=== PATIENT | female | born 1975 | race Hispanic/Latino ===

== ENCOUNTER 2019-06-10 17:43 | Emergency (ER) | payer OTHER, SELFPAY ==
--- NOTE | 2019-06-10 18:40 | CT ---
EXAM: CT scan cervical spineWithout contrast: HISTORY: Injury from trauma COMPARISON: None FINDINGS: No evidence for acute fracture or facet dislocation. No significant malalignment. No prevertebral soft tissue swelling. 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 IMPRESSION: No evidence for acute fracture or facet dislocation or other significant acute process.
== END 2019-06-10 19:25 | disposition home or self-care (01) ==
LOC: ERS 17:43
DX: S16.1XXA Strain of muscle, fascia and tendon at neck level, initial encounter (principal); F32.9 Major depressive disorder, single episode, unspecified; V43.52XA Car driver injured in collision with other type car in traffic accident, initial encounter
CPT/HCPCS: 72125

== ENCOUNTER 2020-02-06 06:54 | Outpatient (CLI) | payer BC, OTHER | END 2020-02-06 06:55 | disposition home or self-care (01) | LOC: LABBT 06:54 | PROVIDERS: ATTEND Specialist | DX: Z01.812 Encounter for preprocedural laboratory examination (principal); Z11.59 Encounter for screening for other viral diseases; C50.211 Malignant neoplasm of upper-inner quadrant of right female breast; Z17.1 Estrogen receptor negative status [ER-] | CPT/HCPCS: 87635; U0003 ==

== ENCOUNTER 2020-02-10 05:47 | Day surgery (SDC) | payer MEDICAID, OTHER, SELFPAY ==
[2020-02-06 11:30] VITALS: BMI 27.6
[2020-02-10] MEDS ORDERED: Lidocaine 2% w/Epinephrine 1:200K 20 ML VIAL ONE (06:32)
[2020-02-10] MEDS ORDERED: Bupivacaine PF 0.5% 30 ML VIAL ONE (06:32)
--- NOTE | 2020-02-10 06:33 | HP ---
HISTORY OF PRESENT ILLNESS: Barbara Cruz is a 44-year-old female, who had noticed a year ago a mass in her upper medial right breast. This was small in size. She apparently had diagnostic imaging and was told this was a cyst. It, however, continued to grow and she reported to her primary care physician who referred her for imaging in December 2019, undergoing ultrasound and mammogram on 01/09/2020, revealed a 5.7 cm mass in upper medial right breast. Ultrasound reveals it to be solid in appearance and also had enlarged lymph node size of which was not described in the right axilla. The patient subsequently had ultrasound-guided biopsies of the right breast upper medial mass and right axillary node again size not described on 01/13/2020. Pathology of the lymph node is benign lymphoid tissue. 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 The patient is 5, para 3, grown children. First 19 years of age. Family history negative for breast cancer. 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 Her youngest is a senior. The patient has a palpable mass, now 7.5 to 8 cm in diameter. There is no skin fixation. There is no skin ulceration. There are no skin changes. I cannot palpate an axillary node. I have discussed this case with Dr. Vences and arranged appointment to see him for medical oncology next week. In the interim, we will obtain a CT scan, chest, abdomen, pelvis, p.o. and IV contrast, bone scan, CBC, comprehensive metabolic profile, and an echocardiogram anticipating and planning for neoadjuvant therapy prior to surgical intervention. She will also need an echocardiogram for baseline cardiac function. The patient's MediPort will be placed next week. IV sedation, local anesthesia. ALLERGIES: NONE. TOBACCO: None. ALCOHOL: She does drink alcohol very rarely. MEDICATIONS: None routinely. PAST MEDICAL HISTORY: Lupus arthritis. Current diagnosis of breast cancer. PAST SURGICAL HISTORY: Appendectomy in 2012, cholecystectomy in 2000. FAMILY HISTORY: Negative. Mother did have hypertension and cholesterol. REVIEW OF SYSTEMS: Ten-point noncontributory. PHYSICAL EXAMINATION: VITAL SIGNS: Weight 144 pounds, height 61 inches, 27 BMI, blood pressure 107/68, heart rate 72, temperature 98.4 degrees. HEAD, EARS, EYES, NOSE, AND THROAT: Unremarkable. GENERAL: She is well developed, well nourished, in no acute distress. Oriented x3. Neurologically intact without deficits. No lymphadenopathy in neck, axilla, or groins bilaterally. CARDIAC: Regular rate and rhythm. No murmur or gallop. CHEST: Clear to auscultation. ABDOMEN: Soft and nontender. EXTREMITIES: Without edema. BREASTS: Left breast is normal. Right breast upper medial reveals a 7.5 to 8 cm mobile mass without skin fixation and without skin abnormalities. Nonpalpable right axilla mass lymph nodes. She is slightly tender in her right axilla from recent biopsy. ASSESSMENT AND PLAN: Right breast cancer, triple negative. We would recommend neoadjuvant therapy with plans as outlined above. She has appointment to see Dr. Vences next week and will arrange MediPort placement next week. I have spent over an hour with this patient discussing recommendations, examining her, and discussing her care with Dr. Vences. Job ID: [id number]
[2020-02-10 07:11] LABS: BHCG - Serum Negative (NEGATIVE); Pregs Control Background? CLEAR/WHITE (CLR/WHITE); Pregs Control Bar Appear? YES (CONTROL BAR)
[2020-02-10] MEDS ORDERED: Fentanyl 100 MCG/2 ML VIAL ONE ×2 (07:24→08:01)
[2020-02-10] MEDS ORDERED: Midazolam HCl 2 mg/2 ml Vial ONE ×2 (07:24→08:01)
[2020-02-10] MEDS ORDERED: PROPOFOL 200 MG/20 ML VIAL ONE (10:16)
--- NOTE | 2020-02-10 10:56 | RAD ---
SINGLE VIEW OF THE CHEST: COMPARISON: None. HISTORY: HemoSplit placement. FINDINGS: A single view of the chest shows a normal-size cardiomediastinal silhouette. A MediPort is seen with its tip in the superior vena cava. Radiopaque structures project over the upper abdomen which may r epresent something external to the patient or laparoscopic sponges in the patient. There are approxi mately 4 of these structures seen. There is no evidence of consolidation, mass, or pleural effusion. Cholecystectomy clips are seen. IMPRESSION: Multiple radiopaque foreign bodies projecting over the abdomen may represent laparoscopic sponges. CODE T POS: EAA
--- NOTE | 2020-02-10 13:42 | OP ---
DATE OF PROCEDURE: 02/10/2020 PREOPERATIVE DIAGNOSIS: Advanced right breast cancer, upper medial, in need of antineoplastic chemotherapy administration access preoperatively. POSTOPERATIVE DIAGNOSES: Advanced right breast cancer, upper medial, in need of antineoplastic chemotherapy administration access preoperatively. PROCEDURE PERFORMED: Left subclavian vein low-profile MediPort, PowerPort. ANESTHESIA: Intravenous sedation with local 0.5% Marcaine 30 mL mixed with 1% Xylocaine with epinephrine 20 mL. Note, fluoroscopy malfunctioned, I used digital x-ray for positioning. DESCRIPTION OF PROCEDURE: The patient was taken to the operating room, where under intravenous sedation, neck and chest prepared with ChloraPrep and draped in routine fashion. Local anesthetic mixture was infiltrated into the skin and subcutaneous tissue about the operative site. Trocar catheter cannulated the subclavian vein in left infraclavicular approach and J-wire threaded, trocar catheter removed. Skin site enlarged sharply and a subcutaneous pocket created, noting good hemostasis. Fluoroscopy malfunctioned. Dilator and Peel-Away sheath placed over the J-wire into the superior vena cava, and dilator and J-wire removed. Catheter placed with Peel-Away sheath. Peel-Away sheath removed. Once digital x-rays obtained, tip placed in optimal position in superior vena cava, catheter tailored to length, connected to the MediPort, placed in subcutaneous pocket, and subcutaneous tissue was approximated with 3-0 Monocryl, skin with subdermal 4-0 Monocryl, and [place] glue applied. MediPort accessed with a Waterman needle, obtaining good return of venous blood, and flushed with heparinized saline solution. Final chest x-ray revealed good line and MediPort placement. Job ID: [id number]
== END 2020-02-10 10:40 | disposition home or self-care (01) ==
LOC: SDC 05:47
PROVIDERS: ATTEND Specialist
PROC: 02HV33Z Insertion of Infusion Device into Superior Vena Cava, Percutaneous Approach (ICD-10-PCS; principal; 2020-02-10)
DX: C50.211 Malignant neoplasm of upper-inner quadrant of right female breast (principal); M19.90 Unspecified osteoarthritis, unspecified site; Z17.1 Estrogen receptor negative status [ER-]
CPT/HCPCS: 36415; 71045; 84703; C1788; J0690; J1642; J2250; J2704; J3010; S0020

== ENCOUNTER 2020-02-14 08:09 | Outpatient (CLI) | payer MEDICAID, OTHER, SELFPAY ==
[2020-02-14] MEDS ORDERED: Iopamidol 370 76% 50 ML VIAL FS ONE (09:31)
[2020-02-14] MEDS ORDERED: Iopamidol-370 76% 500 ML 1 ML ONE (09:31)
--- NOTE | 2020-02-14 12:36 | CT ---
CT OF THE CHEST, ABDOMEN AND PELVIS WITH IV CONTRAST INDICATION: History of breast cancer; evaluate for metastatic disease COMPARISON: None FINDINGS: CHEST: Lungs: The lungs are clear. Pleural space: No effusion. Mediastinum: There is a left subclavian chest wall port. No pathologically enlarged lymph nodes are s een within the mediastinum. Axilla: There are enlarged lymph nodes within the right axilla. The largest is seen on image 17 of s eries 2 measuring 1.2 cm. There is an additional 9 mm lymph node on image 16 of series 2. A mildly prominent lymph node is seen within the right axilla on image 20 of series 2 measuring 8 mm. No supra clavicular lymphadenopathy is evident. There is a 5.6 x 4.7 cm right breast mass. There is thickening of the overlying skin of the right breast suspicious for inflammatory right breast maligna ncy. ABDOMEN: Liver: There is focal intrahepatic biliary ductal dilatation involving the right hepatic lobe. There is post procedural change of a cholecystectomy. Gallbladder: Surgically absent Pancreas: Normal. Adrenal glands: Normal. Spleen: Normal. Kidneys and ureters: Normal. No hydronephrosis. Vasculature: Normal. Lymph nodes:No lymphadenopathy. Free fluid in abdomen:No free fluid is evident. PELVIS: Small and large bowel: No definite abnormality is evident. Appendix:Not definitely seen Bladder: Normal. Rectal and perirectal soft tissues:Normal. Reproductive structures: Normal. Free fluid in pelvis: No free fluid is evident. Lymphadenopathy pelvis: No lymphadenopathy is evident. Osseous structures: No acute osseous abnormality. No destructive osteolytic or osteoblastic lesion i s identified. There is scattered degenerative and osteoarthritic changes. Soft tissues:Normal. IMPRESSION: 1. Large right breast mass with associated right breast skin thickening is suspicious for inflammator y breast cancer. 2. Enlarged lymph nodes of the right axilla suspicious for malignant lymphadenopathy. 3. No evidence of metastatic disease in the lungs, abdomen and pelvis.
--- NOTE | 2020-02-14 13:24 | NM ---
WHOLE BODY BONE SCAN: HISTORY: Right breast cancer. Malignant neoplasm of the upper inner quadrant of the right female rené st RADIOPHARMACEUTICAL: 28 mCi technetium 99m-MDP injected intravenously COMPARISON: None CORRELATION: CT chest, abdomen and pelvis of same date FINDINGS: There scattered degenerative activity in the appendicular skeleton. There is some soft tissue activit y in the right breast mass seen on the CT scan. No other abnormal areas of tracer localization are seen in the skeleton to suggest metastatic disease . Tracer excretion through the kidneys is within normal limits. IMPRESSION: No scintigraphic evidence of osseous metastatic disease.
== END 2020-02-14 08:10 | disposition home or self-care (01) ==
LOC: CT 08:09
PROVIDERS: ATTEND Internal Medicine Hematology & Oncology
DX: C50.211 Malignant neoplasm of upper-inner quadrant of right female breast (principal); N63.10 Unspecified lump in the right breast, unspecified quadrant; R59.0 Localized enlarged lymph nodes; N64.89 Other specified disorders of breast
CPT/HCPCS: 36415; 71260; 74177; 78306; 84702; A9503; Q9967

== ENCOUNTER 2020-02-16 12:42 | Outpatient (CLI) | payer MEDICAID, OTHER, SELFPAY | END 2020-02-16 12:43 | disposition home or self-care (01) | LOC: CT 12:42 | PROVIDERS: ATTEND Specialist | DX: C50.211 Malignant neoplasm of upper-inner quadrant of right female breast (principal); I08.2 Rheumatic disorders of both aortic and tricuspid valves | CPT/HCPCS: 93306 ==

== ENCOUNTER 2020-02-24 12:34 | Day surgery (SDC) | payer MEDICAID ==
[~2020-02-24 12:34] MED LIST: CARBOPLATIN IVPB SCH; Dexamethasone Sod Phosphate 10 MG, Ondansetron 2MG/ML MDV 10 MG in Sodium Chloride 0.9%... IVPB SCH; PACLITAXEL IVPB SCH; Pembrolizumab 200 MG in Sodium Chloride 0.9% 250 ML 250 ML IV SCH; SODIUM CHLORIDE 0.9% IVPB SCH; Sodium Chloride 0.9% 20 ML ONE
[2020-02-24 13:09] VITALS: BP 115/69; TEMP 98.4
== END 2020-02-24 16:29 | disposition home or self-care (01) ==
LOC: ONC/OP 12:34
PROVIDERS: ATTEND Internal Medicine Hematology & Oncology
DX: Z51.12 Encounter for antineoplastic immunotherapy (principal); C50.211 Malignant neoplasm of upper-inner quadrant of right female breast
CPT/HCPCS: 96375; 96413; 96417; J1100; J1642; J2405; J7050; J9045; J9267

== ENCOUNTER 2020-03-01 10:50 | Day surgery (SDC) | payer MEDICAID ==
[~2020-03-01 10:50] MED LIST changes: -Dexamethasone Sod Phosphate 10 MG, Ondansetron 2MG/ML MDV 10 MG in Sodium Chloride 0.9%... IVPB SCH; -Pembrolizumab 200 MG in Sodium Chloride 0.9% 250 ML 250 ML IV SCH; -Sodium Chloride 0.9% 20 ML ONE
[2020-03-01] MEDS: Dexamethasone Sod Phosphate 10 MG, Ondansetron 2MG/ML MDV 10 MG in Sodium Chloride 0.9%... IVPB SCH ×2 (10:55→11:08)
[2020-03-01] MEDS ORDERED: Sodium Chloride 0.9% 20 ML ONE (10:58)
[2020-03-01 11:17] VITALS: BP 112/70; TEMP 98.5
== END 2020-03-01 13:12 | disposition home or self-care (01) ==
LOC: ONC/OP 10:50
PROVIDERS: ATTEND Internal Medicine Hematology & Oncology
DX: Z51.11 Encounter for antineoplastic chemotherapy (principal); C50.211 Malignant neoplasm of upper-inner quadrant of right female breast
CPT/HCPCS: 96375; 96413; 96417; J1100; J1642; J2405; J7050; J9045; J9267

== ENCOUNTER 2020-03-30 08:46 | Day surgery (SDC) | payer MEDICAID ==
[~2020-03-30 08:46] MED LIST changes: +Dexamethasone Sod Phosphate 10 MG, Ondansetron 2MG/ML MDV 10 MG in Sodium Chloride 0.9%... IVPB SCH; +Pembrolizumab 200 MG in Sodium Chloride 0.9% 250 ML 250 ML IV SCH
[2020-03-30] MEDS ORDERED: Sodium Chloride 0.9% 20 ML ONE (09:10)
[2020-03-30 09:13] VITALS: BP 116/68; TEMP 97.8
== END 2020-03-30 12:56 | disposition home or self-care (01) ==
LOC: ONC/OP 08:46
PROVIDERS: ATTEND Internal Medicine Hematology & Oncology
DX: Z51.11 Encounter for antineoplastic chemotherapy (principal); C50.211 Malignant neoplasm of upper-inner quadrant of right female breast; Z17.1 Estrogen receptor negative status [ER-]
CPT/HCPCS: 96375; 96413; 96417; J1100; J1642; J2405; J7050; J9045; J9267

== ENCOUNTER 2020-04-20 09:22 | Day surgery (SDC) | payer OTHER ==
[~2020-04-20 09:22] MED LIST changes: +Sodium Chloride 0.9% 20 ML ONE
[2020-04-20 10:22] VITALS: BP 122/76; TEMP 98.4
[2020-04-20] MEDS ORDERED: Sodium Chloride 0.9% 20 ML ONE (12:44)
[2020-04-27] MEDS ORDERED: Dexamethasone Sod Phosphate 10 MG, Ondansetron 2MG/ML MDV 10 MG in Sodium Chloride 0.9%... IVPB SCH (01:30)
== END 2020-04-20 13:12 | disposition home or self-care (01) ==
LOC: ONC/OP 09:22
PROVIDERS: ATTEND Internal Medicine Hematology & Oncology
DX: Z51.12 Encounter for antineoplastic immunotherapy (principal); C50.211 Malignant neoplasm of upper-inner quadrant of right female breast
CPT/HCPCS: 96375; 96413; 96417; J1100; J1642; J2405; J7050; J9045; J9267; J9271

== ENCOUNTER 2020-04-27 09:08 | Day surgery (SDC) | payer OTHER ==
[~2020-04-27 09:08] MED LIST changes: -Pembrolizumab 200 MG in Sodium Chloride 0.9% 250 ML 250 ML IV SCH; -Sodium Chloride 0.9% 20 ML ONE
[2020-04-27] MEDS ORDERED: Sodium Chloride 0.9% 20 ML ONE ×2 (09:23→09:29)
[2020-04-27 09:49] VITALS: BP 107/72
== END 2020-04-27 12:24 | disposition home or self-care (01) ==
LOC: ONC/OP 09:08
PROVIDERS: ATTEND Internal Medicine Hematology & Oncology
DX: Z51.11 Encounter for antineoplastic chemotherapy (principal); C50.211 Malignant neoplasm of upper-inner quadrant of right female breast
CPT/HCPCS: 96375; 96413; 96417; J1100; J1642; J2405; J7050; J9045; J9267

== ENCOUNTER 2020-05-04 09:50 | Day surgery (SDC) | payer OTHER ==
[2020-05-04] MEDS ORDERED: Sodium Chloride 0.9% 20 ML ONE (09:51)
[2020-05-04 10:26] LABS: #Basophils 0.1 thou/uL (0.0-0.2); #Eosinphils 0.1 thou/uL (0.0-0.7); #Lymphocytes 1.3 thou/uL (1.20-3.40); #Monocytes 0.3 thou/uL (0.11-0.59); #Neutrophils 1.2 thou/uL (1.40-6.50); %Basophils 2.1 % (0.0-1.0); %Lymphocytes 45.6 % (21.0-51.0); %Monocytes 8.7 % (0.0-10.0); %Neutrophils 41.6 % (42.0-75.0); Hemoglobin 11.3 g/dL (12.0-16.0); Mean Corpuscular HGB CONC 34.3 g/dL (32.0-36.0); Mean Corpuscular Hemoglobin 32.2 pg (27.0-31.0); Mean Corpuscular Volume 93.9 fL (78.0-98.0); Mean Platelet Volume 9.2 fL (7.4-10.4); Platelet Count 269 thou/uL (130-400); RBC Distribution Width 13.1 % (11.5-14.5); Red Blood Cell (RBC) Count 3.52 mill/uL (4.20-5.40); White Blood Cell (WBC) Count 2.9 thou/uL (4.8-10.8)
[2020-05-04 10:56] VITALS: BP 118/79; TEMP 98.8
[2020-05-04 11:10] LABS: ALT (SGPT) 158 U/L (8-55); AST (SGOT) 73 U/L (5-34); Albumin 3.8 g/dL (3.5-5.0); Alkaline Phosphatase 219 U/L (40-110); Anion Gap 12 mmol/L (10-20); BUN (Urea Nitrogen) 10 mg/dL (7.0-18.7); Bilirubin, Total 0.3 mg/dL (0.2-1.2); Calc. Creatinine Clearance 0 mL/min (70-130); Calcium 8.8 mg/dL (7.8-10.44); Carbon Dioxide 24 mmol/L (22-29); Chloride 106 mmol/L (98-107); Estimated GFR-MDRD Greater than 90; Globulin 2.8 g/dL (2.4-3.5); Glucose 91 mg/dL (70-105); Potassium 3.9 mmol/L (3.5-5.1); Protein, Total 6.6 g/dL (6.0-8.3); Sodium 138 mmol/L (136-145); Uric Acid 2.4 mg/dL (2.6-6.0)
== END 2020-05-04 11:01 | disposition home or self-care (01) ==
LOC: ONC/OP 09:50
PROVIDERS: ATTEND Internal Medicine Hematology & Oncology
DX: Z51.11 Encounter for antineoplastic chemotherapy (principal); C50.211 Malignant neoplasm of upper-inner quadrant of right female breast
CPT/HCPCS: 36591; 80053; 83615; 84550; 85025; 99211; G0463; J1100; J1642; J2405; J7050; J9045; J9267

== ENCOUNTER 2020-05-18 10:00 | Day surgery (SDC) | payer OTHER | END 2020-05-18 14:56 | disposition home or self-care (01) | LOC: ONC/OP 10:00 | PROVIDERS: ATTEND Internal Medicine Hematology & Oncology | DX: Z51.11 Encounter for antineoplastic chemotherapy (principal); C50.211 Malignant neoplasm of upper-inner quadrant of right female breast | CPT/HCPCS: 36415; 80053; 82248; 83615; 84100; 84550; 96375; 96413; 96417; J1100; J2405; J7050; J9045; J9267 ==

== ENCOUNTER 2020-05-25 10:23 | Day surgery (SDC) | payer OTHER ==
[~2020-05-25 10:23] MED LIST changes: -CARBOPLATIN IVPB SCH; +CARBOplatin 200 MG in Sodium Chloride 0.9% 250 ML 250 ML IVPB SCH
[2020-05-25] MEDS ORDERED: Sodium Chloride 0.9% 20 ML ONE (10:28)
[2020-05-25 13:14] VITALS: BP 106/77; TEMP 98.6
== END 2020-05-25 13:19 | disposition home or self-care (01) ==
LOC: ONC/OP 10:23
PROVIDERS: ATTEND Internal Medicine Hematology & Oncology
DX: Z51.11 Encounter for antineoplastic chemotherapy (principal); C50.211 Malignant neoplasm of upper-inner quadrant of right female breast
CPT/HCPCS: 36415; 80053; 82248; 83615; 84100; 84550; 96375; 96413; 96417; J1100; J1642; J2405; J7050; J9045; J9267

== ENCOUNTER 2020-06-01 12:47 | Day surgery (SDC) | payer OTHER ==
[~2020-06-01 12:47] MED LIST changes: +CARBOPLATIN IVPB SCH; -CARBOplatin 200 MG in Sodium Chloride 0.9% 250 ML 250 ML IVPB SCH; +Pembrolizumab 200 MG in Sodium Chloride 0.9% 250 ML 250 ML IV SCH
[2020-06-01] MEDS ORDERED: Sodium Chloride 0.9% 20 ML ONE (12:57)
[2020-06-01 13:32] VITALS: BP 118/60
== END 2020-06-01 17:03 | disposition home or self-care (01) ==
LOC: ONC/OP 12:47
PROVIDERS: ATTEND Internal Medicine Hematology & Oncology
DX: Z51.12 Encounter for antineoplastic immunotherapy (principal); C50.211 Malignant neoplasm of upper-inner quadrant of right female breast; D70.1 Agranulocytosis secondary to cancer chemotherapy
CPT/HCPCS: 96375; 96413; 96417; J1100; J1642; J2405; J7050; J9045; J9267

== ENCOUNTER 2020-06-08 09:34 | Day surgery (SDC) | payer OTHER ==
[2020-06-08] MEDS ORDERED: Sodium Chloride 0.9% 20 ML ONE (09:39)
[2020-06-08 09:43] VITALS: BP 122/76; TEMP 97.9
[2020-06-08] MEDS ORDERED: Ondansetron 2MG/ML MDV 10 MG, Dexamethasone Sod Phosphate 10 MG in Sodium Chloride 0.9%... IVPB SCH (09:45)
[2020-06-08] MEDS ORDERED: SODIUM CHLORIDE 0.9% IVPB SCH ×2 (10:00)
[2020-06-08] MEDS ORDERED: PACLITAXEL IVPB SCH (10:00)
[2020-06-08] MEDS ORDERED: CARBOPLATIN IVPB SCH (10:00)
== END 2020-06-08 13:37 | disposition home or self-care (01) ==
LOC: ONC/OP 09:34
PROVIDERS: ATTEND Internal Medicine Hematology & Oncology
DX: Z51.11 Encounter for antineoplastic chemotherapy (principal); C50.211 Malignant neoplasm of upper-inner quadrant of right female breast; D70.1 Agranulocytosis secondary to cancer chemotherapy
CPT/HCPCS: 36415; 80053; 82248; 83615; 84100; 84550; 96375; 96413; 96417; J1100; J1642; J2405; J7050; J9045; J9267

== ENCOUNTER 2020-06-15 09:14 | Day surgery (SDC) | payer OTHER ==
[~2020-06-15 09:14] MED LIST changes: -Dexamethasone Sod Phosphate 10 MG, Ondansetron 2MG/ML MDV 10 MG in Sodium Chloride 0.9%... IVPB SCH; +Ondansetron 2MG/ML MDV 10 MG, Dexamethasone Sod Phosphate 10 MG in Sodium Chloride 0.9%... IVPB SCH; -Pembrolizumab 200 MG in Sodium Chloride 0.9% 250 ML 250 ML IV SCH; +Sodium Chloride 0.9% 20 ML ONE
[2020-06-15 09:23] VITALS: BP 114/67
== END 2020-06-15 12:14 | disposition home or self-care (01) ==
LOC: ONC/OP 09:14
PROVIDERS: ATTEND Internal Medicine Hematology & Oncology
DX: Z51.11 Encounter for antineoplastic chemotherapy (principal); C50.211 Malignant neoplasm of upper-inner quadrant of right female breast; D70.1 Agranulocytosis secondary to cancer chemotherapy
CPT/HCPCS: 36415; 80053; 82248; 83615; 84100; 84550; 96375; 96413; 96417; J1100; J1642; J2405; J7050; J9045; J9267

== ENCOUNTER 2020-06-28 10:22 | Day surgery (SDC) | payer OTHER ==
[~2020-06-28 10:22] MED LIST changes: -CARBOPLATIN IVPB SCH; +CYCLOPHOSPHAMIDE IVPB SCH; +DOXORUBICIN IVPB SCH; +Dexamethasone Sod Phosphate 20 MG in Sodium Chloride 0.9% 50 ML IVPB SCH; -Ondansetron 2MG/ML MDV 10 MG, Dexamethasone Sod Phosphate 10 MG in Sodium Chloride 0.9%... IVPB SCH; -PACLITAXEL IVPB SCH; +Palonosetron HCl 0.25 MG in Sodium Chloride 0.9% 50 ML IVPB SCH; +Pembrolizumab 200 MG in Sodium Chloride 0.9% 250 ML 250 ML IV SCH; -Sodium Chloride 0.9% 20 ML ONE
[2020-06-28] MEDS ORDERED: Sodium Chloride 0.9% 20 ML ONE (10:33)
== END 2020-06-28 14:41 | disposition home or self-care (01) ==
LOC: ONC/OP 10:22
PROVIDERS: ATTEND Internal Medicine Hematology & Oncology
DX: Z51.12 Encounter for antineoplastic immunotherapy (principal); C50.211 Malignant neoplasm of upper-inner quadrant of right female breast; D70.1 Agranulocytosis secondary to cancer chemotherapy
CPT/HCPCS: 96367; 96375; 96413; 96417; J1100; J1453; J1642; J2469; J3490; J7050; J9000; J9070

== ENCOUNTER 2020-06-29 12:36 | Day surgery (SDC) | payer OTHER ==
[~2020-06-29 12:36] MED LIST changes: -CYCLOPHOSPHAMIDE IVPB SCH; -DOXORUBICIN IVPB SCH; -Dexamethasone Sod Phosphate 20 MG in Sodium Chloride 0.9% 50 ML IVPB SCH; +PEGFILGRASTIM-JMDB 6 MG/0.6 ML SYRINGE SQ SCH; -Palonosetron HCl 0.25 MG in Sodium Chloride 0.9% 50 ML IVPB SCH; -Pembrolizumab 200 MG in Sodium Chloride 0.9% 250 ML 250 ML IV SCH; -SODIUM CHLORIDE 0.9% IVPB SCH
== END 2020-06-29 12:54 | disposition home or self-care (01) ==
LOC: ONC/OP 12:36
PROVIDERS: ATTEND Internal Medicine Hematology & Oncology
DX: Z51.89 Encounter for other specified aftercare (principal); C50.211 Malignant neoplasm of upper-inner quadrant of right female breast; D70.1 Agranulocytosis secondary to cancer chemotherapy
CPT/HCPCS: 96372

== ENCOUNTER 2020-07-19 12:57 | Day surgery (SDC) | payer OTHER ==
[~2020-07-19 12:57] MED LIST changes: +CYCLOPHOSPHAMIDE IVPB SCH; +DOXORUBICIN IVPB SCH; +Dexamethasone Sod Phosphate 20 MG in Sodium Chloride 0.9% 50 ML IVPB SCH; -PEGFILGRASTIM-JMDB 6 MG/0.6 ML SYRINGE SQ SCH; +Palonosetron HCl 0.25 MG in Sodium Chloride 0.9% 50 ML IVPB SCH; +Pembrolizumab 200 MG in Sodium Chloride 0.9% 250 ML 250 ML IVPB SCH; +SODIUM CHLORIDE 0.9% IVPB SCH
[2020-07-19] MEDS ORDERED: Sodium Chloride 0.9% 20 ML ONE (13:06)
[2020-07-19] MEDS ORDERED: CYCLOPHOSPHAMIDE IV ONE (14:16)
[2020-07-19] MEDS ORDERED: SODIUM CHLORIDE 0.9% IV ONE (14:16)
[2020-07-19 14:54] VITALS: BP 108/70; TEMP 98.5
== END 2020-07-19 16:33 | disposition home or self-care (01) ==
LOC: ONC/OP 12:57
PROVIDERS: ATTEND Internal Medicine Hematology & Oncology
DX: Z51.12 Encounter for antineoplastic immunotherapy (principal); C50.211 Malignant neoplasm of upper-inner quadrant of right female breast; D70.1 Agranulocytosis secondary to cancer chemotherapy
CPT/HCPCS: 96367; 96375; 96413; 96417; J1100; J1453; J1642; J2469; J3490; J7050; J9000; J9070

== ENCOUNTER 2020-07-20 12:54 | Day surgery (SDC) | payer OTHER ==
[2020-07-20] MEDS ORDERED: PEGFILGRASTIM-JMDB 6 MG/0.6 ML SYRINGE ONE (12:57)
[2020-07-20 14:24] VITALS: BP 119/75; TEMP 97.5
== END 2020-07-20 14:25 | disposition home or self-care (01) ==
LOC: ONC/OP 12:54
PROVIDERS: ATTEND Internal Medicine Hematology & Oncology
DX: Z51.12 Encounter for antineoplastic immunotherapy (principal); C50.211 Malignant neoplasm of upper-inner quadrant of right female breast; D70.1 Agranulocytosis secondary to cancer chemotherapy
CPT/HCPCS: 96372; Q5108

== ENCOUNTER 2020-08-09 09:12 | Day surgery (SDC) | payer OTHER ==
[~2020-08-09 09:12] MED LIST changes: +PALONOSETRON HCL 0.05 MG/ML 5 ML VIAL IVP SCH
[2020-08-09] MEDS ORDERED: Sodium Chloride 0.9% 20 ML ONE (09:14)
[2020-08-09 09:41] VITALS: BP 110/72; TEMP 98
== END 2020-08-09 13:38 | disposition home or self-care (01) ==
LOC: ONC/OP 09:12
PROVIDERS: ATTEND Internal Medicine Hematology & Oncology
DX: Z51.11 Encounter for antineoplastic chemotherapy (principal); C50.211 Malignant neoplasm of upper-inner quadrant of right female breast; D70.1 Agranulocytosis secondary to cancer chemotherapy
CPT/HCPCS: 96367; 96375; 96413; 96417; J1100; J1453; J1642; J2469; J3490; J7050; J9000; J9070

== ENCOUNTER 2020-08-10 13:04 | Day surgery (SDC) | payer OTHER ==
[~2020-08-10 13:04] MED LIST changes: -CYCLOPHOSPHAMIDE IVPB SCH; -DOXORUBICIN IVPB SCH; -Dexamethasone Sod Phosphate 20 MG in Sodium Chloride 0.9% 50 ML IVPB SCH; -PALONOSETRON HCL 0.05 MG/ML 5 ML VIAL IVP SCH; +PEGFILGRASTIM-JMDB 6 MG/0.6 ML SYRINGE SQ SCH; -Palonosetron HCl 0.25 MG in Sodium Chloride 0.9% 50 ML IVPB SCH; -Pembrolizumab 200 MG in Sodium Chloride 0.9% 250 ML 250 ML IVPB SCH; -SODIUM CHLORIDE 0.9% IVPB SCH
[2020-08-10 14:12] VITALS: BP 130/83; TEMP 99.1
== END 2020-08-10 14:12 | disposition home or self-care (01) ==
LOC: ONC/OP 13:04
PROVIDERS: ATTEND Internal Medicine Hematology & Oncology
DX: Z51.89 Encounter for other specified aftercare (principal); C50.211 Malignant neoplasm of upper-inner quadrant of right female breast; D70.1 Agranulocytosis secondary to cancer chemotherapy
CPT/HCPCS: 96372; Q5108

== ENCOUNTER 2020-08-30 08:54 | Day surgery (SDC) | payer OTHER ==
[~2020-08-30 08:54] MED LIST changes: +CYCLOPHOSPHAMIDE IVPB SCH; +DOXORUBICIN IVPB SCH; +Dexamethasone Sod Phosphate 20 MG in Sodium Chloride 0.9% 50 ML IVPB SCH; +PALONOSETRON HCL 0.05 MG/ML 5 ML VIAL IVP SCH; -PEGFILGRASTIM-JMDB 6 MG/0.6 ML SYRINGE SQ SCH; +Pembrolizumab 200 MG in Sodium Chloride 0.9% 250 ML 250 ML IV SCH; +SODIUM CHLORIDE 0.9% IVPB SCH
[2020-08-30] MEDS ORDERED: Sodium Chloride 0.9% 20 ML ONE (09:22)
[2020-08-30 10:17] VITALS: BP 118/73; TEMP 99
== END 2020-08-30 15:18 | disposition home or self-care (01) ==
LOC: ONC/OP 08:54
PROVIDERS: ATTEND Internal Medicine Hematology & Oncology
DX: Z51.11 Encounter for antineoplastic chemotherapy (principal); C50.211 Malignant neoplasm of upper-inner quadrant of right female breast; D70.1 Agranulocytosis secondary to cancer chemotherapy
CPT/HCPCS: 96367; 96375; 96413; 96417; J1100; J1453; J1642; J2469; J3490; J7050; J9000; J9070

== ENCOUNTER 2020-10-03 07:25 | Day surgery (SDC) | payer OTHER ==
[2020-09-28 11:45] VITALS: BMI 26.8
[2020-10-03] MEDS ORDERED: Acetaminophen 500 MG TAB ONE (09:03)
[2020-10-03] MEDS ORDERED: Ketorolac Tromethamine 30 MG/ML VIAL ONE (09:03)
--- NOTE | 2020-10-03 09:13 | NM ---
Lymphoscintigraphy right breast HISTORY: Right breast cancer. FINDINGS: A total volume of 1 cc containing 399 uCi technetium 99m filtered sulfur colloid was inject ed into the skin at the 12, 3, 6, and 9:00 periareolar positions of the right breast. Imaging was performed, showing immediate uptake of radiotracer at 2 foci axillary tail right breast. Skin overlying the leonid uptake was marked, and patient was sent to day surgery. IMPRESSION : Technically successful lymphoscintigraphy right breast, revealing axillary tail sentinel nodes.
[2020-10-03] MEDS ORDERED: PROPOFOL 200 MG/20 ML VIAL ONE (09:21)
[2020-10-03] MEDS ORDERED: Dexamethasone 20 MG/5 ML VIAL ONE (09:21)
[2020-10-03] MEDS ORDERED: Ondansetron PF 4 MG/2 ML Vial ONE (09:21)
[2020-10-03] MEDS ORDERED: ePHEDrine 50 MG/ML VIAL ONE (09:21)
[2020-10-03] MEDS ORDERED: Lidocaine 1% PF 5 ML VIAL ONE (09:21)
[2020-10-03] MEDS ORDERED: Scopolamine 1.5 mg/72 hour Patch ONE (09:48)
[2020-10-03] MEDS ORDERED: HYDROmorphone 0.5 MG/0.5 ML SYRINGE ONE (10:50)
[2020-10-03] MEDS ORDERED: Dexmedetomidine 200 MCG/2 ML VIAL ONE (10:50)
[2020-10-03] MEDS ORDERED: Fentanyl 100 MCG/2 ML VIAL ONE (10:50)
[2020-10-03] MEDS ORDERED: Bupivacaine 0.25% HCL 30 ML VIAL ONE (10:51)
[2020-10-03] MEDS ORDERED: Lidocaine 1% (PF) 30 ML VIAL ONE (10:51)
[2020-10-03] MEDS ORDERED: Isosulfan Blue 50 MG/5 ML VIAL ONE (10:54)
[2020-10-03] MEDS ORDERED: HYDROcodone/Acetaminophen 5/325 mg Tablet ONE (13:12)
--- NOTE | 2020-10-03 15:02 | OP ---
DATE OF PROCEDURE: 10/03/2020 PREOPERATIVE DIAGNOSIS: Right breast cancer, upper inner quadrant. POSTOPERATIVE DIAGNOSIS: Right breast cancer, upper inner quadrant. PROCEDURES PERFORMED: 1. Lymphoscintigraphy. 2. Injection of Lymphazurin blue in right periareolar. 3. Viper node biopsy, counts of 420, post biopsy counts harvested bed 28. 4. Partial mastectomy of upper inner right breast. ANESTHESIA: General, local with 0.25% Marcaine 60 mL, mixed with 1% Xylocaine with epinephrine 20 mL, total volume used. DESCRIPTION OF PROCEDURE: The patient was taken to the operating room where after lymphoscintigraphy and under general anesthesia, Lymphazurin blue injected in the lateral areolar border subdermally, less than 2 mL used. Right breast was prepared with ChloraPrep and draped in routine fashion. Right breast massaged. Axillary incision made in the right, carried down to skin, subcutaneous tissue, and deep fascia, identifying the sentinel node, color blue with increased counts as noted and excised, submitted to Pathology for permanent evaluation. Good hemostasis obtained with cautery. Subcutaneous tissue was approximated with 3-0 Monocryl, skin with subdermal 4-0 Monocryl, and [place] glue applied after local anesthetic was infiltrated in the skin and subcutaneous tissue for postoperative pain control. Attention was then turned to the right breast cancer. Elliptical incision overlying the breast cancer upper medial of right breast performed, excising ellipse of skin to leave attached to the tumor. The skin and subcutaneous tissues dissected free from the breast cancer as well as underlying breast tissue for wide margins and partial mastectomy/tylectomy. Specimen excised and margins marked for pathology identification. Hemostasis gained with cautery. Subcutaneous tissue was approximated with 3-0 Monocryl, skin with 4-0 Monocryl, and local anesthetic was infiltrated in the skin and subcutaneous tissue about the wound in the biopsy cavity for postoperative pain control. [place] glue applied. Job ID: [id number]
== END 2020-10-03 15:10 | disposition home or self-care (01) ==
LOC: SDC 07:25
PROVIDERS: ATTEND Specialist
PROC: 0HBT0ZZ Excision of Right Breast, Open Approach (ICD-10-PCS; principal; 2020-10-03)
PROC: 07B50ZX Excision of Right Axillary Lymphatic, Open Approach, Diagnostic (ICD-10-PCS; principal; 2020-10-03)
DX: C50.211 Malignant neoplasm of upper-inner quadrant of right female breast (principal); C50.611 Malignant neoplasm of axillary tail of right female breast; M19.90 Unspecified osteoarthritis, unspecified site; Z17.1 Estrogen receptor negative status [ER-]; Z88.1 Allergy status to other antibiotic agents
CPT/HCPCS: 78195; 88307; 88342; A9541; J0690; J1100; J1170; J1885; J2001; J2405; J2704; J3010; J3490; Q9968; S0020

== ENCOUNTER 2021-07-08 14:03 | Outpatient (CLI) | payer MEDICAID | END 2021-07-08 14:04 | disposition home or self-care (01) | LOC: BICMAMMO 14:03 | PROVIDERS: ATTEND Internal Medicine Hematology & Oncology | DX: C50.211 Malignant neoplasm of upper-inner quadrant of right female breast (principal) | CPT/HCPCS: 77066; G0279 ==

== ENCOUNTER 2021-08-27 08:59 | Outpatient (CLI) | payer OTHER ==
[2021-08-27 09:53] LABS: BHCG - Serum Negative (NEGATIVE); Pregs Control Background? CLEAR/WHITE (CLR/WHITE); Pregs Control Bar Appear? YES (CONTROL BAR)
[2021-08-27] MEDS ORDERED: Iopamidol 370 76% 100 ML VIAL ONE (09:54)
== END 2021-08-27 09:00 | disposition home or self-care (01) ==
LOC: MERGE 08:59 → CT 08:59
PROVIDERS: ATTEND Internal Medicine Hematology & Oncology
DX: Z32.00 Encounter for pregnancy test, result unknown (principal); C50.211 Malignant neoplasm of upper-inner quadrant of right female breast; R91.8 Other nonspecific abnormal finding of lung field; N64.89 Other specified disorders of breast; D70.1 Agranulocytosis secondary to cancer chemotherapy; T45.1X5A Adverse effect of antineoplastic and immunosuppressive drugs, initial encounter; Z90.2 Acquired absence of lung [part of]; Z90.49 Acquired absence of other specified parts of digestive tract; Z92.3 Personal history of irradiation
CPT/HCPCS: 36415; 71260; 74177; 78306; 84703; A9503; Q9967

== ENCOUNTER 2021-09-06 17:30 | Inpatient (IN) | payer OTHER ==
[2021-09-17] MEDS ORDERED: ceFAZolin 2 GM/DEX 5% 100 ML BAG ONE ×2 (06:04→07:00)
[2021-09-17] MEDS ORDERED: Thrombin 5000 UNITS/5 ML VIAL ONE (06:12)
[2021-09-17] MEDS ORDERED: Bacitracin Zinc Ointment 30 gm TUBE ONE (06:12)
[2021-09-17] MEDS ORDERED: Neomycin-Polymyxin 1 ML AMP ONE ×2 (06:12→12:52)
[2021-09-17] MEDS ORDERED: Lidocaine 0.5%/Epinephrine 1:200,000 50 ml Vial ONE (06:12)
[2021-09-17] MEDS ORDERED: Midazolam HCl 2 mg/2 ml Vial ONE (06:36)
[2021-09-17] MEDS ORDERED: Acetaminophen 325 MG TAB PO PRN (06:36)
[2021-09-17] MEDS ORDERED: Promethazine HCl 25 MG/ML VIAL IM PRN (06:36)
[2021-09-17] MEDS ORDERED: Ondansetron PF 4 MG/2 ML Vial IVP PRN (06:36)
[2021-09-17] MEDS ORDERED: HYDROcodone/Acetaminophen 7.5/325 mg Tablet PO PRN (06:36)
[2021-09-17] MEDS ORDERED: Phenylephrine 10 MG/ML VIAL ONE (07:01)
[2021-09-17] MEDS ORDERED: Fentanyl 100 MCG/2 ML VIAL ONE ×3 (07:01→12:46)
[2021-09-17] MEDS ORDERED: Lidocaine 1% PF 5 ML VIAL ONE (07:30)
[2021-09-17] MEDS ORDERED: PROPOFOL 200 MG/20 ML VIAL ONE (07:30)
[2021-09-17] MEDS ORDERED: Ondansetron PF 4 MG/2 ML Vial ONE (07:30)
[2021-09-17] MEDS ORDERED: Ketorolac Tromethamine 30 MG/ML VIAL ONE (07:30)
[2021-09-17] MEDS ORDERED: Dexamethasone 20 MG/5 ML VIAL ONE (07:30)
[2021-09-17] MEDS ORDERED: Rocuronium Bromide 10 MG/ML (10ML VIAL) ONE (07:30)
[2021-09-17] MEDS ORDERED: Nitroglycerin 50 MG/250 ML BOT 0 ML ONE (08:18)
[2021-09-17] MEDS ORDERED: hydrALAZINE 20 MG/ML VIAL ONE (08:18)
[2021-09-17] MEDS ORDERED: HYDROmorphone 2 MG/ML VIAL ONE (13:03)
[2021-09-17] MEDS ORDERED: Albumin 5% 250 ML ONE (13:26)
[2021-09-17] MEDS ORDERED: Ondansetron ODT 4 MG TAB SL SCH (14:00)
[2021-09-17] MEDS ORDERED: Scopolamine 1.5 mg/72 hour Patch TD SCH (14:00)
[2021-09-17] MEDS ORDERED: Ondansetron ODT 8 MG TAB SL SCH (14:00)
[2021-09-17] MEDS: Labetalol HCl 100 MG/20 ML VIAL SLOW IVP PRN ×3 (15:01→21:12)
[2021-09-17] MEDS: ceFAZolin 2 GM/Dextrose 50 ML 2 GM in Premix Bag 1 BAG IVPB SCH ×2 (15:06→16:19)
[2021-09-17] MEDS: Morphine 4 MG/ML VIAL SLOW IVP PRN ×2 (15:27→20:09)
[2021-09-17] MEDS: Sodium Chloride 0.9% 1,000 ML IV SCH (15:48)
[2021-09-17 16:32] VITALS: BMI 27.6
[2021-09-17] MEDS: Dexamethasone 4 MG TAB PO SCH ×2 (17:23→20:10)
[2021-09-17] MEDS: Ondansetron ODT 4 MG TAB SL SCH ×2 (18:42→20:10)
[2021-09-17] MEDS: HYDROcodone/Acetaminophen 10/325 mg Tablet PO PRN ×2 (18:45→23:18)
[2021-09-18] MEDS: Sodium Chloride 0.9% 1,000 ML IV SCH ×3 (00:16→16:26)
[2021-09-18] MEDS: Dexamethasone 4 MG TAB PO SCH ×4 (01:05→20:37)
[2021-09-18] MEDS: Ondansetron ODT 4 MG TAB SL SCH ×6 (02:13→20:37)
[2021-09-18 03:30] LABS: #Lymphocytes 1.1 thou/uL (1.20-3.40); #Monocytes 0.8 thou/uL (0.11-0.59); #Neutrophils 17.3 thou/uL (1.40-6.50); %Basophils 0.1 % (0.0-1.0); %Eosinophils 0.1 % (0.0-10.0); %Lymphocytes 5.5 % (21.0-51.0); %Monocytes 4.3 % (0.0-10.0); Hemoglobin 11.4 g/dL (12.0-16.0); Mean Corpuscular HGB CONC 33.9 g/dL (32.0-36.0); Mean Corpuscular Hemoglobin 33.3 pg (27.0-31.0); Mean Platelet Volume 7.8 fL (7.4-10.4); Platelet Count 176 thou/uL (130-400); RBC Distribution Width 11.6 % (11.5-14.5); Red Blood Cell (RBC) Count 3.41 mill/uL (4.20-5.40); White Blood Cell (WBC) Count 19.2 thou/uL (4.8-10.8)
[2021-09-18 03:53] LABS: Anion Gap 14 mmol/L (10-20); BUN (Urea Nitrogen) 16 mg/dL (7.0-18.7); Calc. Creatinine Clearance 145 mL/min (70-130); Calcium 8.4 mg/dL (7.8-10.44); Carbon Dioxide 23 mmol/L (22-29); Chloride 102 mmol/L (98-107); Glucose 141 mg/dL (70-105); Magnesium 2.1 mg/dL (1.6-2.6); Sodium 135 mmol/L (136-145)
[2021-09-18] MEDS: HYDROcodone/Acetaminophen 10/325 mg Tablet PO PRN ×4 (04:48→22:46)
[2021-09-18] MEDS: Labetalol HCl 100 MG/20 ML VIAL SLOW IVP PRN (05:01)
[2021-09-18] MEDS: Morphine 4 MG/ML VIAL SLOW IVP PRN ×3 (07:12→20:40)
[2021-09-18] MEDS ORDERED: Prevnar 13-Val Conj/PF 0.5 ML SYRINGE IM ONE (16:45)
[2021-09-18] MEDS ORDERED: FLU VACC QS2021-22(6MOS UP)/PF 60 MCG/0.5 ML SYRINGE IM ONE (16:45)
[2021-09-19] MEDS: Ondansetron ODT 4 MG TAB SL SCH ×4 (01:07→13:00)
[2021-09-19] MEDS: HYDROcodone/Acetaminophen 10/325 mg Tablet PO PRN ×2 (03:38→09:04)
[2021-09-19] MEDS: Sodium Chloride 0.9% 1,000 ML IV SCH ×2 (04:44→12:20)
[2021-09-19] MEDS: Dexamethasone 4 MG TAB PO SCH (09:02)
[2021-09-19] MEDS: Morphine 4 MG/ML VIAL SLOW IVP PRN (11:06)
[2021-09-19 12:53] VITALS: BP 117/83; TEMP 98.7
== END 2021-09-19 14:23 | disposition home or self-care (01) | DRG 27 ==
LOC: SURG A 09-17 05:42 → CCU 09-17 14:17 → SURG B 09-18 16:22 → CCU 09-18 16:45 → SURG B 09-18 17:10
PROVIDERS: ADMIT Neurological Surgery; ATTEND Neurological Surgery
PROC: 00BC0ZZ Excision of Cerebellum, Open Approach (ICD-10-PCS; principal; 2021-09-17)
PROC: 00U20JZ Supplement Dura Mater with Synthetic Substitute, Open Approach (ICD-10-PCS; 2021-09-17)
PROC: 0NU Head and Facial Bones, Supplement (ICD-10-PCS; 2021-09-17)
DX: C79.31 Secondary malignant neoplasm of brain (principal); M19.90 Unspecified osteoarthritis, unspecified site; M32.9 Systemic lupus erythematosus, unspecified; C50.911 Malignant neoplasm of unspecified site of right female breast; R91.8 Other nonspecific abnormal finding of lung field; Z90.49 Acquired absence of other specified parts of digestive tract; Z90.11 Acquired absence of right breast and nipple; Z82.49 Family history of ischemic heart disease and other diseases of the circulatory system; Z83.49 Family history of other endocrine, nutritional and metabolic diseases; Z79.52 Long term (current) use of systemic steroids; Z88.1 Allergy status to other antibiotic agents; Z86.16 Personal history of COVID-19
CPT/HCPCS: 36415; 80048; 83735; 85025; 88307; 88331; 88334; 88341; 88342; C1713; C1776; C1788; C1889; J0360; J1100; J1170; J1642; J1885; J2001; J2250; J2270; J2370; J2405; J2704; J3010; J3370; J7050; J8540; P9045; Q0162

== ENCOUNTER 2021-09-12 08:47 | Outpatient (CLI) | payer OTHER ==
[2021-09-12 10:43] LABS: Hemoglobin 15.1 g/dL (12.0-15.5); Mean Corpuscular HGB CONC 34.7 g/dL (32.0-36.0); Mean Corpuscular Hemoglobin 32.5 pg (27.0-33.0); Mean Corpuscular Volume 93.5 fl (81.6-98.3); Mean Platelet Volume 10.9 fl (7.4-10.4); Platelet Count 310 10x3/uL (150-450); RBC Distribution Width 11.4 % (11.5-14.5); Red Blood Cell (RBC) Count 4.65 10x6/uL (3.90-5.03); White Blood Cell (WBC) Count 11.5 10x3/uL (3.5-10.5)
[2021-09-12 11:07] LABS: INR-International Normal Ratio 0.9; Prothrombin Time 10.4 sec (9.5-12.1)
[2021-09-12 19:08] LABS: SARS-CoV-2 PCR by NAA DETECTED (NotDetected)
== END 2021-09-12 08:48 | disposition home or self-care (01) ==
LOC: LABBT 08:47
PROVIDERS: ATTEND Neurological Surgery
DX: U07.1 COVID-19 (principal); Z01.812 Encounter for preprocedural laboratory examination; G93.9 Disorder of brain, unspecified
CPT/HCPCS: 85027; 85610; 85730; U0003; U0005

== ENCOUNTER 2021-09-19 16:42 | Outpatient (CLI) | payer OTHER ==
[2021-09-20 19:32] LABS: SARS-CoV-2 PCR by NAA Not Detected (NotDetected)
== END 2021-09-19 16:43 | disposition home or self-care (01) ==
LOC: LABBT 16:42
PROVIDERS: ATTEND Internal Medicine Hematology & Oncology
DX: Z01.812 Encounter for preprocedural laboratory examination (principal); C50.211 Malignant neoplasm of upper-inner quadrant of right female breast; D70.1 Agranulocytosis secondary to cancer chemotherapy; Z20.822 Contact with and (suspected) exposure to COVID-19
CPT/HCPCS: U0003; U0005